=== PATIENT | male | born 1975 | race African-American/Black ===

== ENCOUNTER 2016-08-15 07:40 | Emergency (ER) | payer SELFPAY ==
[~2016-08-15] VITALS: Ht 170.2 cm; Wt 63.5 kg
[~2016-08-15 07:40] MED LIST: ALBU6.7H INH; PRED20 PO
[2016-08-15 07:41] VITALS: BP 136/85; PULSE 74; RESP 20; TEMP 98.1; O2SAT 100
[2016-08-15] MEDS ORDERED: IBUP800T23 PO (08:00)
[2016-08-15] MEDS ORDERED: BACT800T5 PO (08:00)
[2016-08-15] MEDS ORDERED: CEPH-460 PO (08:00)
[2016-08-15] MEDS ORDERED: LIDOCAINE 1%/EPINEPHrine 1:100,000 SOLN 20 ML VIAL INFIL ONE (08:00)
--- NOTE | 2016-08-15 08:01 | PD ---
HPI Chief Complaint: Lump, Cyst, Hernia Time Seen by Provider: 07:56 Travel History International Travel<30 days: No Contact w/Intl Traveler<30days: No Traveled to known affect area: No History of Present Illness HPI 40-year-old male presents to the emergency Department with complaint of an abscess to his left buttock times one week. Has history of abscesses. Reports subjective fever. Denies vomiting. Has not taken any medications or tried any treatments to alleviate his symptoms. Has no other medical complaints. No known allergies. No other modifying factors or associated signs and symptoms. PFSH Past Medical History Asthma: Yes Diminished Hearing: No Inguinal Hernia: Yes (LEFT SIDE 2000) Past Surgical History Abdominal Surgery: Yes (HERNIA REPAIR 2000) Social History Alcohol Use: Yes (SOCIAL) Tobacco Use: Yes (04/18 PPD) Substance Use: No Allergies-Medications (Allergen,Severity, Reaction): Coded Allergies: No Known Allergies (Verified , 08/15/16) Reported Meds & Prescriptions Reported Meds & Active Scripts Active Bactrim DS (Sulfamethoxazole-Trimethoprim) 800-160 Mg Tab 1 Tab PO BID 10 Days Keflex (Cephalexin) 500 Mg Cap 500 Mg PO Q6H 10 Days Ibuprofen 800 Mg Tab 800 Mg PO Q6HR PRN Reported Proventil Hfa 6.7 GM Inh (Albuterol Sulfate) 90 Mcg/Act Aer 1 Puff INH Q4H PRN Review of Systems Except as stated in HPI: all other systems reviewed are Neg Physical Exam Narrative GENERAL: Well-nourished, well-developed male patient, in no acute distress; afebrile, nontoxic-appearing SKIN: There is an indurated area to the left buttocks which measures about 2 cm in diameter. It is fluctuant but there is no pointing or drainage. There is a zone of inflammation around it but no lymphangitis. HEAD: Atraumatic. Normocephalic. EYES: Pupils equal and round. No scleral icterus. No injection or drainage. ENT: Mucosa pink and moist. Airway patent. NECK: Trachea midline. CARDIOVASCULAR: Regular rate. RESPIRATORY: No accessory muscle use. GASTROINTESTINAL: Flat. MUSCULOSKELETAL: No obvious deformities. No clubbing. No cyanosis. No edema. NEUROLOGICAL: Awake and alert. Oriented 3. No obvious cranial nerve deficits. Motor grossly within normal limits. Normal speech. PSYCHIATRIC: Appropriate mood and affect; insight and judgment normal. Data Data Last Documented VS Vital Signs Date Time Temp Pulse Resp B/P Pulse Ox O2 Delivery O2 Flow Rate FiO2 08/15/16 07:41 98.1 74 20 136/85 100 Room Air Orders Lidocai-Epi 1%-1:100,000 Inj (Xylocaine- (08/15/16 08:00) Wound Culture And Gram Stain (08/15/16 07:55) MDM Medical Decision Making Medical Screen Exam Complete: Yes Emergency Medical Condition: Yes Medical Record Reviewed: Yes Differential Diagnosis Abscess, folliculitis, cellulitis Narrative Course 40-year-old male with abscess to his left buttocks. See my procedure note for incision and drainage. Wound culture pending. Keflex, Bactrim, ibuprofen prescribed for home. Instructed patient to follow up with primary care provider or return to the emergency department in 48 hours for packing removal. Patient verbalizes understanding and agreement with treatment plan. Patient is medically cleared and stable for discharge. Discussed reasons to return to the emergency department. Instructed patient to follow up with primary care provider. Patient agrees with treatment plan. The patients vital signs are stable and the patient is stable for outpatient follow-up and treatment. Patient discharged home, stable and in no acute distress. Procedures Procedure Narrative INCISION AND DRAINAGE OF ABSCESS: The area was prepped and was sterilely draped. A subcutaneous wheal of 1 % Xylocaine with epinephrine with a total number 2 mL was used to anesthetize the area properly. A number 11 scalpel was used to make a 1-cm incision across the area of the abscess. The abscess was drained, complex loculations were broken down, and irrigated with normal saline. Cultures were obtained. Quarter inch iodoform packing was placed in the wound. Sterile dressing applied. Patient advised to have packing removed in two days. Diagnosis Primary Impression: Abscess of buttock, left Referrals: Primary Care Physician Patient Instructions: Abscess (ED), Abscess Follow-up (ED), Abscess Incision and Drainage (ED), General Instructions Departure Forms: Tests/Procedures, Work Release Enter return to work date: August 16, 2016 Additional Instructions: Complete full course of antibiotics Warm compresses to the affected area Keep area clean and dry Ibuprofen or Tylenol as directed and as needed for pain and inflammation Return to the emergency department or follow-up with primary care provider in 48 hours for packing removal and wound recheck Follow-up with primary care provider Return to emergency department immediately with worsening of symptoms Med/Other Pt SpecificInfo: Prescription(s) given Scripts Sulfamethoxazole-Trimethoprim (Bactrim DS)800-160 Mg Tab1 Tab PO BID 10 Days Ref 0 Prov:Cora Kenny 08/15/16 Cephalexin (Keflex)500 Mg [id number] Mg PO Q6H 10 Days Ref 0 Prov:Cora Kenny 08/15/16 Ibuprofen 800 Mg Qpx017 Mg PO Q6HR PRN (PAIN) #30 TAB Ref 0 Prov:Cora Kenny 08/15/16 Disposition: 01 DISCHARGE HOME Condition: Stable Cora Kenny August 15, 2016 08:01
[2016-08-15] MEDS ORDERED: ALBU6.7H INH (08:07)
== END 2016-08-15 08:48 | disposition home or self-care (01) ==
LOC: NEPK 07:40
DX: L02.31 Cutaneous abscess of buttock (principal); J45.909 Unspecified asthma, uncomplicated; F17.210 Nicotine dependence, cigarettes, uncomplicated; B95.62 Methicillin resistant Staphylococcus aureus infection as the cause of diseases classified elsewhere
CPT/HCPCS: 10061; 86403; 87070; 87186

== ENCOUNTER 2016-12-28 22:06 | Emergency (ER) | payer SELFPAY ==
[~2016-12-28] VITALS: Ht 170.2 cm; Wt 63.5 kg
[~2016-12-28 22:06] MED LIST changes: +BACT800T5 PO; +CEPH-460 PO; +IBUP800T23 PO; -PRED20 PO
[2016-12-28 22:08] VITALS: BP 142/95; PULSE 80; RESP 16; TEMP 98.7; O2SAT 94
[2016-12-28] MEDS ORDERED: BACT800T5 PO (23:56)
[2016-12-28] MEDS ORDERED: CEPH-460 PO (23:56)
[2016-12-28] MEDS ORDERED: DICL75TA PO (23:56)
[2016-12-29] MEDS ORDERED: ACETAMINOPHEN/HYDROcodone 325 MG/5 MG TAB PO ONE
[2016-12-29] MEDS ORDERED: SULFAMETHOXAZOLE-TRIMETHOPRIM DS 800-160 MG TAB PO ONE
[2016-12-29] MEDS ORDERED: CEPHALEXIN MONOHYDRATE 500 MG CAP PO ONE
--- NOTE | 2016-12-29 | PD ---
HPI Chief Complaint: Bite or Sting Time Seen by Provider: 23:56 Travel History International Travel<30 days: No Contact w/Intl Traveler<30days: No Traveled to known affect area: No History of Present Illness HPI 41-year-old black male presents with department with a infection to his back of his right thigh over last several days. It has become increasing painful swollen. He works as a senior category manager. Patient has had a history of skin infections in the past. He denies any fever or chills. No drainage. Some moderate. No alleviating factors. 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 SKIN: Patient has a 3 x 3 cm raised indurated abscess to the posterior right thigh. There is no fluctuance or pointing.. Warm and dry. HEAD: Atraumatic. Normocephalic. EYES: PERRL, EOMI, no discharge or injection. No scleral icterus. EARS: Clear NOSE: Nasal turbinates appear normal. THROAT: Mucosa pink and moist. Airway patent. NECK: Trachea midline. supple, moves head freely. LUNGS: Clear to auscultation. CV: Regular in rhythm. ABDOMEN: Soft nontender. EXT: No clubbing cyanosis or edema. Data Data Last Documented VS Vital Signs Date Time Temp Pulse Resp B/P (MAP) Pulse Ox O2 Delivery O2 Flow Rate FiO2 12/28/16 22:08 98.7 80 16 142/95 (111) 94 Room Air Orders Orders Sulfamet-Trimeth Ds 800-160 Mg (Bactrim (12/29/16 00:00) Cephalexin (Keflex) (12/29/16 00:00) Acetamin-Hydrocod 325-5 Mg ([place] 5-325 (12/29/16 00:00) MDM Medical Decision Making Medical Screen Exam Complete: Yes Emergency Medical Condition: Yes Medical Record Reviewed: Yes Differential Diagnosis MDM: High Differential diagnoses: Abscess, folliculitis, cellulitis, lymphangitis, abrasion, contact dermatitis Narrative Course An incision and drainage has been performed. Patient's given Keflex 500, Bactrim DS and Lortab 5 a grams by mouth. This is right thigh abscess Procedures Procedure Narrative I&D abscess: After the risks and benefits were discussed the following procedure was performed. The skin is prepped and draped in the usual sterile fashion using Betadine. The abscess is anesthetized with 1% lidocaine. After adequate anesthesia, an 11 blade scalpel is used to make a 1.5 centimeter central incision. Perulant material is expressed. Loculations are broken up using curved Donna forceps. The wound is cleansed deeply using dilute Betadine and peroxide on Q-tips. The wound is packed open using iodoform gauze. A clean dressing is applied. The patient tolerated the procedure well. There was no complications. Follow-up instructions were given to the patient. Diagnosis Primary Impression: Abscess of right thigh Patient Instructions: Narcotic given in the ED, General Instructions Additional Instructions: Rest. Elevation. keep clean and dry. remove the packing in two days. Daily wound care with soap, water and Neosporin. Keflex, Septra DS, and diclofenac. Follow-up with a primary care doctor in one week. Return to the ER for any problems. Med/Other Pt SpecificInfo: Prescription(s) given, Wound Care Scripts Diclofenac Sodium DR (Diclofenac Sodium DR) 75 Mg Tabdr 75 MG PO BID, #20 TAB 0 Refills Prov: Shamika Salazar DO 12/28/16 Cephalexin (Keflex) 500 Mg Cap 500 MG PO Q6H for Infection for 10 Days, CAP 0 Refills Prov: SalazarShamika DO 12/28/16 Sulfamethoxazole-Trimethoprim (Bactrim DS) 800-160 Mg Tab 1 TAB PO BID for Infection for 10 Days, TAB 0 Refills Prov: SalazarShamika DO 12/28/16 Disposition: 01 DISCHARGE HOME Condition: Stable Ulises Burch Dec 29, 2016 00:00
== END 2016-12-29 00:33 | disposition home or self-care (01) ==
LOC: NETRI 22:06 → EDTENT 12-29 00:33
DX: L02.415 Cutaneous abscess of right lower limb (principal)
CPT/HCPCS: 10061

== ENCOUNTER 2017-04-19 02:29 | Inpatient (IN) | payer SELFPAY ==
[2017-04-19] VITALS (12 sets, daily range): BP systolic 101–146; BP diastolic 63–94; PULSE 54–72; RESP 14–22; TEMP 96.2–98.4; O2SAT 95–100
[~2017-04-19] VITALS: Ht 170.2 cm; Wt 71.5 kg
[~2017-04-19 02:29] MED LIST changes: -ALBU6.7H INH; +DICL75TA PO; -IBUP800T23 PO
[2017-04-19] MEDS ORDERED: IOHEXOL 350 MG/ML 10 ML VIAL (for RAD DIAG) IVCONTRAST ONE (02:30)
[2017-04-19] MEDS ORDERED: ceFAZolin 2 GM PREMIX 50 ML ONE (02:33)
[2017-04-19] MEDS ORDERED: DIPHTH/TETANUS/ACEL PERTUSSIS (BOOSTER) 0.5 ML VIAL/PFS IM ONE (02:33)
[2017-04-19] MEDS ORDERED: ONDANSETRON HCL 4 MG/2 ML VIAL ONE (02:38)
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
[2017-04-19 03:03] LABS: AUTOMATED NEUTROPHIL # 3.6 TH/MM3 (1.8-7.7); BASOPHIL # 0.1 TH/MM3 (0-0.2); BASOPHIL % 1.6 % (0.0-2.0); EOSINOPHIL # 0.2 TH/MM3 (0-0.4); EOSINOPHIL % 2.6 % (0.0-4.0); HEMOGLOBIN 14.3 GM/DL (13.0-17.0); LYMPH % 27.2 % (9.0-44.0); LYMPHOCYTE # 1.6 TH/MM3 (1.0-4.8); MEAN CELL VOLUME 86.3 FL (80.0-100.0); MEAN CORPUSCULAR HEMOGLOBIN 28.6 PG (27.0-34.0); MEAN CORPUSCULAR HGB CONC 33.1 % (32.0-36.0); MONO % 7.5 % (0.0-8.0); MONOCYTE # 0.4 TH/MM3 (0-0.9); NEUT % 61.1 % (16.0-70.0); PLATELET COUNT 444 TH/MM3 (150-450); RED BLOOD COUNT 4.99 MIL/MM3 (4.50-5.90); RED CELL DISTRIBUTION WIDTH 14.7 % (11.6-17.2)
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
[2017-04-19] MEDS ORDERED: MISCELLANEOUS NURSING INFORMATION XX SCH (03:15)
[2017-04-19] MEDS ORDERED: SODIUM CHLORIDE 0.9% FLUSH 10 ML FLUSH IV FLUSH PRN (03:15)
[2017-04-19] MEDS ORDERED: CHLORHEXIDINE GLUCONATE 2 % 1 PACK (2 CLOTHS) TOP PRN (03:15)
[2017-04-19] MEDS ORDERED: ONDANSETRON HCL 4 MG/2 ML VIAL IV PUSH PRN (03:15)
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
[2017-04-19 03:39] LABS: PROTHROMBIN TIME - PATIENT 10.2 SEC (9.8-11.6)
[2017-04-19] MEDS: VANCOMYCIN INJ 1,000 MG in SODIUM CHLOR 0.9% 250 ML INJ 250 ML IV SCH ×3 (03:52→21:19)
[2017-04-19] MEDS: MORPHINE SULFATE 2 MG/ML INJ IV PUSH PRN ×2 (03:53→09:03)
[2017-04-19] MEDS ORDERED: CHLORHEXIDINE GLUCONATE 2 % 1 PACK (2 CLOTHS) TOP SCH (04:00)
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
[2017-04-19] MEDS: LACTATED RINGER'S 1000 ML INJ 1,000 ML IV SCH ×4 (04:55→21:18)
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
[2017-04-19] MEDS ORDERED: RESP: ALBUTEROL 2.5 MG/3 ML NEB (PRN) NEB (05:45)
[2017-04-19] MEDS: PIPERACIL-TAZO 4.5 GM PREMIX 100 ML IV SCH ×4 (06:06→23:20)
[2017-04-19] MEDS ORDERED: BACITRACIN TOP OINT 15 GM TUBE TOP SCH (09:00)
[2017-04-19 17:15] LABS: HEMATOCRIT 39.7 % (39.0-51.0); HEMOGLOBIN 13.3 GM/DL (13.0-17.0); MEAN CELL VOLUME 86.3 FL (80.0-100.0); MEAN CORPUSCULAR HGB CONC 33.6 % (32.0-36.0); MEAN PLATELET VOLUME 7.9 FL (7.0-11.0); PLATELET COUNT 411 TH/MM3 (150-450); RED CELL DISTRIBUTION WIDTH 14.6 % (11.6-17.2); WHITE BLOOD COUNT 5.6 TH/MM3 (4.0-11.0)
[2017-04-19] MEDS ORDERED: ACETAMINOPHEN/HYDROcodone 325 MG/5 MG TAB PO PRN ×2 (18:15→20:00)
[2017-04-19] MEDS ORDERED: ACETAMINOPHEN/HYDROcodone 325 MG/10 MG TAB PO PRN (18:15)
[2017-04-19] MEDS ORDERED: LACTULOSE SYRUP 20 GM/30 ML CUP PO PRN (18:30)
[2017-04-19] MEDS ORDERED: MORPHINE SULFATE 2 MG/ML INJ IV PUSH PRN (18:30)
[2017-04-19] MEDS ORDERED: NICOTINE 21 MG/24 HR PATCH T-DERMAL ONE (19:00)
[2017-04-19] MEDS ORDERED: REMOVE OLD NICODERM (NICOTINE) PATCH T-DERMAL SCH (21:00)
[2017-04-19] MEDS: DOCUSATE SODIUM 50 MG/SENNA 8.6 MG TAB PO SCH (21:00)
[2017-04-19] MEDS: ACETAMINOPHEN/HYDROcodone 325 MG/10 MG TAB PO PRN (21:05)
[2017-04-20] VITALS: BP 155/83; PULSE 69; RESP 22; TEMP 96.8; O2SAT 98
[2017-04-20 04:00] VITALS: BP 111/77; PULSE 65; RESP 22; TEMP 96; O2SAT 97
[2017-04-20] MEDS: VANCOMYCIN INJ 1,000 MG in SODIUM CHLOR 0.9% 250 ML INJ 250 ML IV SCH (04:07)
[2017-04-20] MEDS: PIPERACIL-TAZO 4.5 GM PREMIX 100 ML IV SCH ×2 (05:37→10:58)
[2017-04-20] MEDS: ACETAMINOPHEN/HYDROcodone 325 MG/10 MG TAB PO PRN ×2 (05:40→10:57)
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
[2017-04-20 08:00] VITALS: BP 127/70; PULSE 78; RESP 19; TEMP 97.3; O2SAT 99
[2017-04-20 08:13] LABS: BASOPHIL % 0.7 % (0.0-2.0); EOSINOPHIL # 0.2 TH/MM3 (0-0.4); EOSINOPHIL % 5.3 % (0.0-4.0); HEMOGLOBIN 12.9 GM/DL (13.0-17.0); LYMPH % 31.5 % (9.0-44.0); LYMPHOCYTE # 1.3 TH/MM3 (1.0-4.8); MEAN CELL VOLUME 86.8 FL (80.0-100.0); MEAN CORPUSCULAR HEMOGLOBIN 28.8 PG (27.0-34.0); MEAN CORPUSCULAR HGB CONC 33.1 % (32.0-36.0); MEAN PLATELET VOLUME 7.8 FL (7.0-11.0); MONO % 13.2 % (0.0-8.0); MONOCYTE # 0.5 TH/MM3 (0-0.9); NEUT % 49.3 % (16.0-70.0); PLATELET COUNT 358 TH/MM3 (150-450); RED CELL DISTRIBUTION WIDTH 14.7 % (11.6-17.2); WHITE BLOOD COUNT 4.1 TH/MM3 (4.0-11.0)
[2017-04-20 08:38] LABS: BICARBONATE 24.7 MEQ/L (21.0-32.0); CALCIUM 9.1 MG/DL (8.5-10.1); CREATININE 1.25 MG/DL (0.60-1.30)
[2017-04-20] MEDS: DOCUSATE SODIUM 50 MG/SENNA 8.6 MG TAB PO SCH (08:55)
[2017-04-20] MEDS ORDERED: NICOTINE 21 MG/24 HR PATCH T-DERMAL SCH (09:00)
[2017-04-20 11:33] VITALS: BP 118/64; PULSE 102; RESP 20; TEMP 96.9; O2SAT 99
[2017-04-20] MEDS ORDERED: Vancomycin Consult Pharmacy 1 EA OTHER SCH (12:00)
[2017-04-20] MEDS ORDERED: HYDR-3516 PO (12:25)
[2017-04-20] MEDS ORDERED: AUGM500T7 PO (12:25)
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
[2017-04-20] MEDS ORDERED: VANCOMYCIN INJ 1,250 MG in SODIUM CHLOR 0.9% 250 ML INJ 250 ML IV SCH (16:00)
[2017-04-22] MEDS ORDERED: PHARMACY ORDERED LAB ONE (03:45)
== END 2017-04-20 15:30 | disposition home or self-care (01) | DRG 605 ==
LOC: NEPI 02:29 → NEDA 03:20 → N03B 05:54 → N07B 17:55
PROVIDERS: ADMIT Surgery; ATTEND Surgery
PROC: 0HQ4XZZ Repair Neck Skin, External Approach (ICD-10-PCS; principal; 2017-04-19)
PROC: 0HQGXZZ Repair Left Hand Skin, External Approach (ICD-10-PCS; 2017-04-19)
PROC: 0HQFXZZ Repair Right Hand Skin, External Approach (ICD-10-PCS; 2017-04-19)
DX: S11.81XA Laceration without foreign body of other specified part of neck, initial encounter (principal); R04.2 Hemoptysis; F17.210 Nicotine dependence, cigarettes, uncomplicated; S51.811A Laceration without foreign body of right forearm, initial encounter; S61.212A Laceration without foreign body of right middle finger without damage to nail, initial encounter; X99.1XXA Assault by knife, initial encounter; S61.214A Laceration without foreign body of right ring finger without damage to nail, initial encounter; S61.217A Laceration without foreign body of left little finger without damage to nail, initial encounter; F19.10 Other psychoactive substance abuse, uncomplicated; R49.0 Dysphonia
CPT/HCPCS: 12005; 70491; 71045; 73120; 80048; 80202; 82435; 82565; 82947; 84132; 84295; 84520; 85025; 85027; 85610; 85730; 86850; 86900; 86901; 87641; 90471; 90715; 94150; 96374; 96375; J0690; J2270; J2405; J2543; J3370; J7050; J7120; Q9967

== ENCOUNTER 2017-05-09 20:09 | Emergency (ER) | payer SELFPAY ==
[~2017-05-09] VITALS: Ht 170.2 cm; Wt 65.9 kg
[~2017-05-09 20:09] MED LIST changes: +AUGM500T7 PO; -BACT800T5 PO; -CEPH-460 PO; -DICL75TA PO; +HYDR-3516 PO
[2017-05-09 20:10] VITALS: BP 149/103; PULSE 78; RESP 16; TEMP 98.9; O2SAT 100
[2017-05-09 22:55] VITALS: BP 161/94; PULSE 62; RESP 16; O2SAT 99
[2017-05-09 23:03] LABS: AUTOMATED NEUTROPHIL # 3.5 TH/MM3 (1.8-7.7); BASOPHIL # 0.1 TH/MM3 (0-0.2); BASOPHIL % 1.3 % (0.0-2.0); EOSINOPHIL # 0.3 TH/MM3 (0-0.4); EOSINOPHIL % 4.2 % (0.0-4.0); HEMATOCRIT 40.6 % (39.0-51.0); HEMOGLOBIN 13.3 GM/DL (13.0-17.0); LYMPH % 31.8 % (9.0-44.0); MEAN CELL VOLUME 86.5 FL (80.0-100.0); MEAN CORPUSCULAR HEMOGLOBIN 28.3 PG (27.0-34.0); MEAN CORPUSCULAR HGB CONC 32.7 % (32.0-36.0); MEAN PLATELET VOLUME 7.7 FL (7.0-11.0); MONO % 7.2 % (0.0-8.0); MONOCYTE # 0.5 TH/MM3 (0-0.9); NEUT % 55.5 % (16.0-70.0); PLATELET COUNT 433 TH/MM3 (150-450); RED CELL DISTRIBUTION WIDTH 13.9 % (11.6-17.2); WHITE BLOOD COUNT 6.4 TH/MM3 (4.0-11.0)
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
[2017-05-09 23:15] LABS: PROTHROMBIN TIME - PATIENT 10.1 SEC (9.8-11.6)
[2017-05-09 23:38] LABS: ALBUMIN 3.7 GM/DL (3.4-5.0); ALT (GPT) 22 U/L (12-78); AST (GOT) 18 U/L (15-37); BICARBONATE 30.2 MEQ/L (21.0-32.0); BLOOD UREA NITROGEN 19 MG/DL (7-18); CALCIUM 8.8 MG/DL (8.5-10.1); CHLORIDE 106 MEQ/L (98-107); CREATININE 1.44 MG/DL (0.60-1.30); GLOMERULAR FILTRATION RATE 66 ML/MIN (>89); GLUCOSE,RANDOM 112 MG/DL (74-106); SODIUM (NA) 140 MEQ/L (136-145)
[2017-05-09 23:40] LABS: ALKALINE PHOSPHATASE 102 U/L (45-117); TOTAL BILIRUBIN ADULT 0.2 MG/DL (0.2-1.0); TOTAL PROTEIN 7.2 GM/DL (6.4-8.2)
[2017-05-10] VITALS: BP 157/92; PULSE 86; RESP 16; O2SAT 99
[2017-05-10] MEDS ORDERED: IOHEXOL 350 MG/ML 10 ML VIAL (for RAD DIAG) IVCONTRAST ONE (00:20)
[2017-05-10 00:46] LABS: C-REACTIVE PROTEIN LESS THAN 0.29 MG/DL (0.00-0.30); MAGNESIUM 2.3 MG/DL (1.5-2.5)
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
[2017-05-10 01:33] LABS: BILIRUBIN, URINE NEG (NEG); BLOOD, URINE NEG (NEG); GLUCOSE,URINE NEG (NEG); KETONE, URINE NEG (NEG); NITRITE,URINE NEG (NEG); PH, URINE 6.5 (5.0-8.5); URINE COLOR YELLOW (YELLW/STRAW); URINE LEUKOCYTE ESTERASE NEG (NEG)
[2017-05-10] MEDS ORDERED: NAPR-810 PO (01:48)
[2017-05-10] MEDS ORDERED: CEPH-460 PO (01:57)
[2017-05-10] MEDS ORDERED: KETOROLAC TROMETHAMINE 30 MG/ML (IVP) VIAL IV PUSH ONE (02:00)
[2017-05-10 02:05] VITALS: BP 140/94
--- NOTE | 2017-05-10 12:08 | EKG ---
Date Performed: 05/09/2017 Time Performed: 23:52:33 PTAGE: 41 years EKG: Sinus rhythm NONSPECIFIC T-WAVE ABNORMALITY BORDERLINE ECG NO PREVIOUS TRACING DOCTOR: iV Murcia Interpretating Date/Time 05/10/2017 12:08:09
== END 2017-05-10 02:10 | disposition home or self-care (01) ==
LOC: NEPE 20:09
DX: M54.2 Cervicalgia (principal); R22.1 Localized swelling, mass and lump, neck; R13.10 Dysphagia, unspecified; S11.93XD Puncture wound without foreign body of unspecified part of neck, subsequent encounter; X99.9XXD Assault by unspecified sharp object, subsequent encounter; R94.31 Abnormal electrocardiogram [ECG] [EKG]; F17.200 Nicotine dependence, unspecified, uncomplicated; F14.90 Cocaine use, unspecified, uncomplicated; F12.90 Cannabis use, unspecified, uncomplicated
CPT/HCPCS: 70491; 80053; 81001; 83735; 85025; 85610; 85730; 86140; 93005; 96374; 99285; J1885; Q9967

== ENCOUNTER 2017-12-19 08:10 | Observation (INO) ==
[2017-12-19 10:36] LABS: Baso # (Auto) 0.1 th/mm3 (0.0-0.2); Baso % (Auto) 0.9 % (0.0-2.0); Eos # (Auto) 0.2 th/mm3 (0.0-0.4); Hemoglobin 14.3 gm/dL (13.0-17.0); Lymph % (Auto) 17.8 % (9.0-44.0); Mean Corpuscular HGB Conc 33.4 % (32.0-36.0); Mean Corpuscular Hemoglobin 28.4 pg (27.0-34.0); Mean Corpuscular Volume 85.3 fL (80.0-100.0); Mean Platelet Volume 7.6 fL (7.0-11.0); Mono # (Auto) 0.5 th/mm3 (0.0-0.9); Neut # (Auto) 3.9 th/mm3 (1.8-7.7); Neut % (Auto) 69.3 % (16.0-70.0); Platelet Count 355 th/mm3 (150-450); Red Blood Count 5.04 mil/mm3 (4.50-5.90); Red Cell Distribution Width 14.2 % (11.6-17.2); White Blood Count 5.7 th/mm3 (4.0-11.0)
[2017-12-19 10:51] LABS: Activated Partial Thrombo Time 19.1 sec (24.3-30.1)
--- NOTE | 2017-12-19 10:51 | CT ---
EXAM DATE: 12/19/2017 10:40 AM EDT AGE/SEX: 42 years / Male INDICATIONS: Syncopal episode. Cephalgia. CLINICAL DATA: This is the patient's initial encounter. Patient reports that signs and symptoms have been present for 1 day and indicates a pain score of 7/10. MEDICAL/SURGICAL HISTORY: Asthma. None. RADIATION DOSE: 38.67 CTDI (mGy) COMPARISON: No prior exams available for comparison. TECHNIQUE: CT of the head without contrast. Using automated exposure control and adjustment of the mA and/or kV according to patient size, radiation dose was kept as low as reasonably achievable to ob tain optimal diagnostic quality images. DICOM format image data is available electronically for revi ew and comparison. FINDINGS: Cerebrum: The ventricles are normal for age. No evidence of midline shift, mass lesion, hemorrhage or acute infarction. No extraaxial fluid collections are seen. Posterior Fossa: The cerebellum and brainstem are intact. The 4th ventricle is midline. The cerebe llopontine angle is unremarkable. Extracranial: The visualized portion of the orbits is intact. Skull: The calvaria is intact. No evidence of skull fracture. CONCLUSION: 1. No acute intracranial abnormality . Electronically signed by: Mauricio Eid MD 12/19/2017 10:50 AM EDT
[2017-12-19 10:55] LABS: Alanine Aminotransferase 34 U/L (12-78); Albumin 3.6 g/dL (3.4-5.0); Anion Gap 10 meq/L (5-15); Aspartate Aminotransferase 25 U/L (15-37); Blood Urea Nitrogen 15 mg/dL (7-18); Calcium 8.6 mg/dL (8.5-10.1); Carbon Dioxide 25.9 meq/L (21.0-32.0); Chloride 106 meq/L (98-107); Glomerular Filtration Rate Greater Than 89 mL/min (>89); Glucose,Random 85 mg/dL (74-106); Magnesium 2.3 mg/dL (1.5-2.5); Potassium 4.3 meq/L (3.5-5.1); Sodium 142 meq/L (136-145)
[2017-12-19 10:59] LABS: Alkaline Phosphatase 70 U/L (45-117); Total Protein 7.3 g/dL (6.4-8.2)
[2017-12-19 11:53] LABS: Bilirubin,Urine Negative (Negative); Clarity,Urine Clear (Clear); Color,Urine Yellow (Yellw/Straw); Glucose,Urine (UA) Negative (Negative); Leukocyte Esterase,Urine Trace (Negative); Mucus,Urine Few /lpf (Occasional); Nitrite,Urine Negative (Negative); Specific Gravity,Urine 1.017 (1.002-1.035); Squamous Epithelial Cell,Urine <1 /hpf (0-5)
[2017-12-19 12:00] LABS: Amphetamine Screen,Urine Neg (Neg); Barbiturate Screen,Urine Neg (Neg); Cannabinoid Screen,Urine Neg (Neg); Cocaine Screen,Urine Pos (Neg)
[2017-12-19 12:09] LABS: Opiate Screen,Urine Neg (Neg)
[2017-12-19] MEDS ORDERED: Aspirin 325 MG Tablet PO ONE (13:18)
--- NOTE | 2017-12-19 13:55 | ED ---
HPI General Chief complaint: Fall Stated complaint: syncope Time Seen by Provider: 12/19/17 10:06 Source: patient Mode of arrival: ambulatory Limitations: no limitations History of Present Illness HPI narrative: Patient is a 42-year-old male with only history of asthma, who presents the emergency room after he had a syncopal episode while at work today. Patient reports that he was walking to work and he passed out while walking to the [employer] [place]. Patient has abrasions to his face, patient does not remember what happened. Patient reports that he woke up to his coworker standing around him. Prior to this, patient denies any chest pain or shortness of breath, denies any dizziness. Reports that he has been having left-sided headache behind his left eye is for the past few days. This was not a severe headache. Denies any history of seizures, reports that after he fell, he did not suffer any urinary incontinence. Patient reports that something similar happened 10 years ago, he was not seen by a physician for this. Reports that he felt better and went back to work. Patient does use drugs - last used cocaine and marijuana yesterday. Related Data Home Medications Medication Instructions Recorded Confirmed No Known Home Medications 12/19/17 12/19/17 Allergies Allergy/AdvReac Type Severity Reaction Status Date / Time No Known Drug Allergies Allergy Unknown Verified 04/19/17 02:56 Review of Systems ROS: all other systems reviewed are negative [facility] Medical History Medical History Left groin hernia (Acute) Asthma (Acute) Social History Social History Substance History: Active Abuse Smoking Status: Current every day smoker Tobacco Type: Cigarettes How Often Do You Have a Drink Containing Alcohol: Monthly or less Recent Travel in [facility] within the Last 8 Weeks: No Substance Abuse Detail Marijuana: Substance Use Status: Active Route Used Substance Abuse: Inhalation Substance Abuse Comment: used yesterday Crack/Cocaine: Substance Use Status: Active Substance Abuse Comment: used yesterday Immunization History Tetanus Immunization: <5 Years Hx Influenza Vaccine This Season: No Exam Narrative Exam Narrative: GENERAL: Mild distress SKIN: Focused skin assessment warm/dry. HEAD: abrasions to the left side of his face. Normocephalic. EYES: Pupils equal and round. No scleral icterus. No injection or drainage. ENT: No nasal bleeding or discharge. Mucous membranes pink and moist. NECK: Trachea midline. No JVD. CARDIOVASCULAR: Regular rate and rhythm. No murmur appreciated. RESPIRATORY: No accessory muscle use. Clear to auscultation. Breath sounds equal bilaterally. GASTROINTESTINAL: Abdomen soft, non-tender, nondistended. Hepatic and splenic margins not palpable. MUSCULOSKELETAL: No obvious deformities. No clubbing. No cyanosis. No edema. NEUROLOGICAL: Awake and alert. No obvious cranial nerve deficits. Motor grossly within normal limits. Normal speech. CN 2-12 grossly intact with no neurological deficits PSYCHIATRIC: Appropriate mood and affect; insight and judgment normal. Course Initial Documented Vital Signs Temperature 97.9 F 12/19/17 08:21 Pulse Rate 64 12/19/17 08:21 Respiratory Rate 16 12/19/17 08:21 Blood Pressure 126/91 H 12/19/17 08:21 Pulse Oximetry 98 12/19/17 08:21 Last Documented Vital Signs Temperature 97.9 F 12/19/17 08:21 Pulse Rate 88 12/19/17 12:27 Respiratory Rate 16 12/19/17 12:27 Blood Pressure 142/86 H 12/19/17 12:27 Pulse Oximetry 97 12/19/17 14:31 Medical Decision Making MDM Narrative Medical decision making narrative: During the course of the patients emergency department visit, the patients history, examination, and differential diagnosis were reviewed with the patient. The patient was placed on a nurse monitoring with oximetry and frequent blood pressure monitoring. The patient had an IV access obtained and blood work sent for analysis. The patient was initially provided asa 325mg after ct of head neg for ICH. The patients laboratory studies Patient will be obs for syncope case reviewed with FP service who accepts pt under observation to Dr. Majano Medical Screen Exam Complete: Yes Emergency Medical Condition: Yes Differential Diagnosis Differential Diagnosis: Intracranial hemorrhage, SAH, ACS, arrhythmia, electrolyte abnormality, vasovagal syncope Medical Records Medical records reviewed: Yes I reviewed the patient's medical records. Lab Data Lab results reviewed: Yes I reviewed the patient's lab results. Result diagrams: 12/19/17 10:15 12/19/17 10:15 Lab Results 12/19/17 12/19/17 12/19/17 Range/Units 10:15 10:15 10:15 WBC 5.7 (4.0-11.0) th/mm3 RBC 5.04 (4.50-5.90) mil/mm3 Hgb 14.3 (13.0-17.0) gm/dL Hct 43.0 (39.0-51.0) % MCV 85.3 (80.0-100.0) fL MCH 28.4 (27.0-34.0) pg MCHC 33.4 (32.0-36.0) % RDW 14.2 (11.6-17.2) % Plt Count 355 (150-450) th/mm3 MPV 7.6 (7.0-11.0) fL Neut % (Auto) 69.3 (16.0-70.0) % Lymph % (Auto) 17.8 (9.0-44.0) % [place] % (Auto) 9.0 H (0.0-8.0) % Eos % (Auto) 3.0 (0.0-4.0) % Baso % (Auto) 0.9 (0.0-2.0) % Neut # (Auto) 3.9 (1.8-7.7) th/mm3 Lymph # (Auto) 1.0 (1.0-4.8) th/mm3 [place] # (Auto) 0.5 (0.0-0.9) th/mm3 Eos # (Auto) 0.2 (0.0-0.4) th/mm3 Baso # (Auto) 0.1 (0.0-0.2) th/mm3 WBC Differential . Differential Comment Auto diff final PT 10.0 (9.8-11.6) sec INR 1.0 Ratio APTT 19.1 L (24.3-30.1) sec Sodium 142 (136-145) meq/L Potassium 4.3 (3.5-5.1) meq/L Chloride 106 (98-107) meq/L Carbon Dioxide 25.9 (21.0-32.0) meq/L Anion Gap 10 (5-15) meq/L BUN 15 (7-18) mg/dL Creatinine 1.07 (0.60-1.30) mg/dL Estimated GFR Greater than 89 (>89) mL/min Random Glucose 85 (74-106) mg/dL Calcium 8.6 (8.5-10.1) mg/dL Magnesium 2.3 (1.5-2.5) mg/dL Total Bilirubin 0.2 (0.2-1.0) mg/dL AST 25 (15-37) U/L ALT 34 (12-78) U/L Alkaline Phosphatase 70 (45-117) U/L Troponin I Less than 0.02 L (0.02-0.05) ng/mL B-Natriuretic Peptide (0-100) pg/mL Total Protein 7.3 (6.4-8.2) g/dL Albumin 3.6 (3.4-5.0) g/dL Urine Color (Yellw/Straw) Urine Clarity (Clear) Urine pH (5.0-8.5) Ur Specific [place] (1.002-1.035) Urine Protein (Neg-Trace) mg/dL Urine Glucose (UA) (Negative) mg/dL Urine Ketones (Negative) mg/dL Urine Occult Blood (Negative) Urine Nitrate (Negative) Urine Bilirubin (Negative) Urine Urobilinogen (Less than 2) mg/dL Ur Leukocyte Esterase (Negative) Urine RBC (0-3) /hpf Urine WBC (0-5) /hpf Ur Squamous Epith Cells (0-5) /hpf Urine Mucus (Occasional) /lpf Micro UA Comment Ur Microscopic Review Urine Culture Comments Urine Opiates Screen (Neg) Ur Barbiturates Screen (Neg) Ur Amphetamines Screen (Neg) U Benzodiazepines Scrn (Neg) Urine Cocaine Screen (Neg) U Cannabinoids Screen (Neg) 12/19/17 12/19/17 12/19/17 Range/Units 10:15 11:26 11:26 WBC (4.0-11.0) th/mm3 RBC (4.50-5.90) mil/mm3 Hgb (13.0-17.0) gm/dL Hct (39.0-51.0) % MCV (80.0-100.0) fL MCH (27.0-34.0) pg MCHC (32.0-36.0) % RDW (11.6-17.2) % Plt Count (150-450) th/mm3 MPV (7.0-11.0) fL Neut % (Auto) (16.0-70.0) % Lymph % (Auto) (9.0-44.0) % [place] % (Auto) (0.0-8.0) % Eos % (Auto) (0.0-4.0) % Baso % (Auto) (0.0-2.0) % Neut # (Auto) (1.8-7.7) th/mm3 Lymph # (Auto) (1.0-4.8) th/mm3 [place] # (Auto) (0.0-0.9) th/mm3 Eos # (Auto) (0.0-0.4) th/mm3 Baso # (Auto) (0.0-0.2) th/mm3 WBC Differential Differential Comment PT (9.8-11.6) sec INR Ratio APTT (24.3-30.1) sec Sodium (136-145) meq/L Potassium (3.5-5.1) meq/L Chloride (98-107) meq/L Carbon Dioxide (21.0-32.0) meq/L Anion Gap (5-15) meq/L BUN (7-18) mg/dL Creatinine (0.60-1.30) mg/dL Estimated GFR (>89) mL/min Random Glucose (74-106) mg/dL Calcium (8.5-10.1) mg/dL Magnesium (1.5-2.5) mg/dL Total Bilirubin (0.2-1.0) mg/dL AST (15-37) U/L ALT (12-78) U/L Alkaline Phosphatase (45-117) U/L Troponin I (0.02-0.05) ng/mL B-Natriuretic Peptide 5 (0-100) pg/mL Total Protein (6.4-8.2) g/dL Albumin (3.4-5.0) g/dL Urine Color Yellow (Yellw/Straw) Urine Clarity Clear (Clear) Urine pH 5.0 (5.0-8.5) Ur Specific [place] 1.017 (1.002-1.035) Urine Protein Negative (Neg-Trace) mg/dL Urine Glucose (UA) Negative (Negative) mg/dL Urine Ketones Negative (Negative) mg/dL Urine Occult Blood Negative (Negative) Urine Nitrate Negative (Negative) Urine Bilirubin Negative (Negative) Urine Urobilinogen Less than 2 (Less than 2) mg/dL Ur Leukocyte Esterase Trace H (Negative) Urine RBC 1 (0-3) /hpf Urine WBC 10 H (0-5) /hpf Ur Squamous Epith Cells <1 (0-5) /hpf Urine Mucus Few H (Occasional) /lpf Micro UA Comment Culture indicated Ur Microscopic Review Not Reportable Urine Culture Comments Culture indicated Urine Opiates Screen Neg (Neg) Ur Barbiturates Screen Neg (Neg) Ur Amphetamines Screen Neg (Neg) U Benzodiazepines Scrn Neg (Neg) Urine Cocaine Screen Pos H (Neg) U Cannabinoids Screen Neg (Neg) Imaging Data Attestation: I personally reviewed and interpreted this imaging study as follows : Radiologist's impression: Head CT 12/19/17 09:03 CONCLUSION: 1. No acute intracranial abnormality . ECG Data EKG Prior to Arrival: No Attestation: I personally reviewed and interpreted this ECG as follows: Interpretation: EKG at 0825: sinus ricki at 49bpm, qt/qtc: 455/425, nonspecific t wave changes Discharge Plan Discharge Disposition Patient Disposition: 30 Still Patient Discharge Condition Condition: Stable Discharge Details Diagnosis: Syncope Physicians Team ED Provider: Donna Rosas Primary Care Provider: Primary Care Maria G David Attending Provider: Dominic Brown Status ED Status: Admitted Observation Patient
--- NOTE | 2017-12-19 14:33 | P.HPFP ---
History of Present Illness Primary Care Physician: No Primary Care Physician History of Present Illness: This is a 42 y/o male who presented to the ED today following a syncopal episode this morning. His labwork and CT head came back negative. His EKG revealed sinus bradycardia with rate of 49. Upon exam, patient reports that he was sitting outside of workplace, sweating, and stood up to go inside. After 4 steps, when reaching for door, patient reports "passing out". The next thing he recalls is coming to on the ground with coworkers standing around him. He denies preceding chest pain, palpitations, SOB, dizziness, weakness or aura preceding the episode. He denies urinary incontinence, tongue biting, or residual symptoms following the episode. He reports a similar episode to this 10 years ago, but states that it was different because he had been walking for minutes after standing up before passing out. He denies significant past medical history other than asthma, which he has had since a child and does not see a doctor for. He does not have PCP or any active medical problems for which he takes medication. He was not evaluated for this previous episode. He reports adequate food intake but possible poor fluid intake. On ROS, he does report mild, L-sided ADAME in region behind eye for past few day that he has been managing with acetaminophen. He also endorsed chest pain that occurred last that he described as light pressure-like sensation in his epigastric region without radiation and not associated with diaphoresis, palpitations, n/v, or jaw/arm heaviness. He reports chronic lower back pain. He reports "OK" sleep, stating he got 3-4 hours in previous nights and is currently living on his mother's floor until he finds a house. Social: He reports 1PPD cigarette use, as well as recreational marijuana and cocaine use--both last used 36-48hrs ago. Social EtOH use of 1-2 beers. Surgical History: L-sided hernia repair. Family History: denies. - Diagnosis (1) Syncope Review of Systems Constitutional: Denies chills, Denies fever(s), Denies lack of energy, Denies weakness Eyes: Denies blurry vision, Denies change in vision, Denies floaters Ears, Nose, Mouth, and Throat: Reports headache(s), Denies poor balance Comments: Intermittent. L-sided, behind eye. Does not awake him from sleep. Cardiovascular: Reports chest pain, Reports chest pain with activity, Denies fast heart rate Comments: In region of epigastrium. Respiratory: Denies chest congestion, Denies cough, Denies coughing up blood Gastrointestinal: Denies abdominal pain, Denies black, tarry stools, Denies change in bowel habits, Denies change in stools Genitourinary: Denies blood in urine Musculoskeletal: Reports back pain Neurologic: Denies abnormal movements, Denies dizziness, Denies frequent falls, Denies loss of vision, Denies numbness, Denies unsteadiness, Denies weakness Psychiatric: Denies abnormal sleep pattern, Denies anxiety, Denies confusion Endocrine: Denies cold intolerance Hematologic/Lymphatic: Denies easy bleeding PMFSH - History History Provided By: Patient - Medical History Medical History: Medical History (Last Reviewed 12/19/17 @ 14:47 by Wing Carcamo) Left groin hernia (Acute) Asthma - Tobacco History Tobacco Use In Past 30 Days: Yes Smoking Status: Current every day smoker Tobacco Type: Cigarettes Packs Per Day: 1 - Alcohol History How Often Do You Have a Drink Containing Alcohol: Monthly or less - Substance Use History Substance History: Active Abuse (marijuana and cocaine, last used Monday morning ) - Substance Use Type Marijuana Status: Active Route Used: Inhalation Comment: used yesterday Crack/Cocaine Status: Active Comment: used yesterday - Travel History Recent Travel in the [facility] Within the Last 8 Weeks: No - Immunization History Tetanus Immunization: <5 Years Hx Influenza Vaccine This Season: No Medications and Allergies Active Medications: Active Medications Sodium Chloride (Ns Inj) 1,000 mls @ 100 mls/hr IV.CONT .Q10H JOSE G Allergies Allergy/AdvReac Type Severity Reaction Status Date / Time No Known Drug Allergies Allergy Unknown Verified 04/19/17 02:56 Home Medications Medication Instructions Recorded Confirmed Type No Known Home Medications 12/19/17 12/19/17 History Exam Vital signs: Vital Signs 12/19/17 08:21 12/19/17 08:27 12/19/17 09:02 Temperature 97.9 F Pulse Rate 64 56 L Respiratory Rate 16 Blood Pressure 126/91 H Pulse Oximetry 98 99 100 12/19/17 12:27 12/19/17 14:31 Temperature Pulse Rate 88 Respiratory Rate 16 Blood Pressure 142/86 H Pulse Oximetry 97 Intake & Output 09/03/18 09/04/18 09/04/18 18:59 06:59 18:59 Weight 63.503 kg - Constitutional no acute distress, average body habitus, cooperative - Routine HEENT Exam Head: Present: normocephalic (With abrasion noted to L cheek) Eye: Present: EOMI, PERRL, normal accommodation, conjunctivae pink. Absent: conjunctival icterus, scleral injection, periorbital swelling, nystagmus ENT: Present: mucous membranes moist, oropharynx clear (Dentention notable for missing 4 upper anterior-most teeth) - Routine Neck Exam Present: supple, full ROM. Absent: carotid bruit, lymphadenopathy - Routine Chest/Breast/Axilla Exam Chest wall: Absent: tenderness - Routine Respiratory Exam Present: CTA bilaterally. Absent: rhonchi, stridor, wheezes, crackles Comments: poor air movement - Routine Cardiovascular Exam Present: RRR, S1, S2, bradycardia. Absent: murmur, gallop, rubs - Routine Abdominal Exam Present: soft, normoactive bowel sounds. Absent: tenderness, distended - Routine Extremities Exam Present: pulses intact, normal capillary refill. Absent: cyanosis, clubbing, edema, calf tenderness, Wally's sign - Routine Skin Exam Absent: cyanosis, erythema - Routine Neurological Exam Present: alert, oriented X3, CN II-XII intact, normal reflexes, moving all extremities, vision grossly intact, hearing grossly intact, normal speech. Absent: sensory deficit, motor deficit, plantar reflex, clonus, nystagmus, facial asymmetry, tremors, asterixis - Routine Psychiatric Exam Present: normal affect, normal thought process. Absent: suicidal ideation, homicidal ideation, auditory hallucinations, visual hallucinations Results - Labs Result diagrams: 12/19/17 10:15 12/19/17 10:15 Abnormal lab results 12/19/17 12/19/17 12/19/17 Range/Units 10:15 10:15 10:15 [place] % (Auto) 9.0 H (0.0-8.0) % APTT 19.1 L (24.3-30.1) sec Troponin I Less than 0.02 L (0.02-0.05) ng/mL Ur Leukocyte Esterase (Negative) Urine WBC (0-5) /hpf Urine Mucus (Occasional) /lpf Urine Cocaine Screen (Neg) 12/19/17 12/19/17 Range/Units 11:26 11:26 [place] % (Auto) (0.0-8.0) % APTT (24.3-30.1) sec Troponin I (0.02-0.05) ng/mL Ur Leukocyte Esterase Trace H (Negative) Urine WBC 10 H (0-5) /hpf Urine Mucus Few H (Occasional) /lpf Urine Cocaine Screen Pos H (Neg) Short CBC 12/19/17 Range/Units 10:15 WBC 5.7 (4.0-11.0) th/mm3 Hgb 14.3 (13.0-17.0) gm/dL Hct 43.0 (39.0-51.0) % Plt Count 355 (150-450) th/mm3 BMP 12/19/17 10:15 Sodium 142 Potassium 4.3 Chloride 106 Carbon Dioxide 25.9 BUN 15 Creatinine 1.07 Calcium 8.6 Cardiac Enzymes 12/19/17 Range/Units 10:15 Troponin I Less than 0.02 L (0.02-0.05) ng/mL Liver Function 12/19/17 Range/Units 10:15 Total Bilirubin 0.2 (0.2-1.0) mg/dL AST 25 (15-37) U/L ALT 34 (12-78) U/L Alkaline Phosphatase 70 (45-117) U/L Albumin 3.6 (3.4-5.0) g/dL Urine 12/19/17 Range/Units 11:26 Urine Color Yellow (Yellw/Straw) Urine Clarity Clear (Clear) Urine pH 5.0 (5.0-8.5) Ur Specific [place] 1.017 (1.002-1.035) Urine Protein Negative (Neg-Trace) mg/dL Urine Glucose (UA) Negative (Negative) mg/dL - Imaging Impressions Head CT 12/19/17 09:03 CONCLUSION: 1. No acute intracranial abnormality . Caprini VTE Risk Assessment Caprini VTE Risk Assessment: No/Low Risk (score <= 1) Caprini Risk Assessment Model: Point Value = 1 Point Value = 2 Point Value = 3 Point Value = 5 Age 41-60 Minor surgery BMI > 25 kg/m2 Swollen legs Varicose veins or History of unexplained or recurrent spontaneous Oral contraceptives or hormone replacement Sepsis (< 1 month) Serious lung disease, including pneumonia (< 1 month) Abnormal pulmonary function Acute myocardial infarction Congestive heart failure (< 1 month) History of inflammatory bowel disease Medical patient at bed rest Age 61-74 Arthroscopic surgery Major open surgery (> 45 min) Laparoscopic surgery (> 45 min) Malignancy Confined to bed (> 72 hours) Immobilizing plaster cast Central venous access Age >= 75 History of VTE Family history of VTE Factor V Leiden Prothrombin [id number] Lupus anticoagulant Anticardiolipin antibodies Elevated serum homocysteine Heparin-induced thrombocytopenia Other congenital or acquired thrombophilia Stroke (< 1 month) Elective arthroplasty Hip, pelvis, or leg fracture Acute spinal cord injury (< 1 month) Prophylaxis Regimen: Total Risk Factor Score Risk Level Prophylaxis Regimen 0-1 Low Early ambulation 2 Moderate Order ONE of the following: *Sequential Compression Device (SCD) *Heparin 5000 units SQ BID 3-4 Higher Order ONE of the following medications: *Heparin 5000 units SQ TID *Enoxaparin/Lovenox 40 mg SQ daily (WT < 150 kg, CrCl > 30 mL/min) *Enoxaparin/Lovenox 30 mg SQ daily (WT < 150 kg, CrCl > 10-29 mL/min) *Enoxaparin/Lovenox 30 mg SQ BID (WT < 150 kg, CrCl > 30 mL/min) AND/OR *Sequential Compression Device (SCD) 5 or more Highest Order ONE of the following medications: *Heparin 5000 units SQ TID (Preferred with Epidurals) *Enoxaparin/Lovenox 40 mg SQ daily (WT < 150 kg, CrCl > 30 mL/min) *Enoxaparin/Lovenox 30 mg SQ daily (WT < 150 kg, CrCl > 10-29 mL/min) *Enoxaparin/Lovenox 30 mg SQ BID (WT < 150 kg, CrCl > 30 mL/min) AND *Sequential Compression Device (SCD) Assessment and Plan - Assessment (1) Syncope Code(s): R55 - Syncope and collapse Status: Acute Plan: This is a 42 y/o male who presents following a syncopal episode this morning while at work after standing from a seated position. He reported no preceding symptoms leading up to episode nor a significant past medical history. He reports a similar episode 10 years ago without preceding symptoms, for which he was never evaluated. He does not see a physician regularly and takes no medications. His EKG in the ED revealed sinus bradycardia with a rate of [address] depression or elevation. His head CT was negative and labwork has been unremarkable thus far. His physical exam revealed no focal neurologic deficits or cardiovascular abnormalities. Given the proximity of the episode to rising from a seated position coupled with his poor fluid intake and sweating from sitting outside, this is likely an episode of orthostasis or vasovagal syncope. His bradycardia is likely physiologic. Carotid U/S will be performed to r/o stenosis and troponin's will be trended given this episode of chest pressure last to r/o ischemia/ damage. He will remain in obs overnight on telemetry, with q4 neuro checks and Lovenox 30mg for DVT prophylaxis.
[2017-12-19] MEDS ORDERED: Acetaminophen 325 MG Tablet PO PRN (14:59)
[2017-12-19] MEDS ORDERED: Bisacodyl 10 MG Supp RECTAL PRN (14:59)
[2017-12-19] MEDS: Sod Chloride 0.9% Inj 1,000 ML IV.CONT SCH (15:00)
--- NOTE | 2017-12-19 15:43 | US ---
EXAM DATE: 12/19/2017 3:33 PM EDT AGE/SEX: 42 years / Male INDICATIONS: Syncope. CLINICAL DATA: This is the patient's initial encounter. Patient reports that signs and symptoms have been present for 1 day and indicates a pain score of 0/10. MEDICAL/SURGICAL HISTORY: . Asthma. Left inguinal hernia. None. COMPARISON: No prior exams available for comparison. VELOCITY PARAMETERS: ICA/CCA Ratio: Right 0.8 , Left 0.8 ICA: Right 78.9 cm/sec, Left 85.5 cm/sec CCA: Right 105 cm/sec, Left 110 cm/sec ECA: Right 124 cm/sec, Left 87.0 cm/sec Vertebral: Right 47.9 cm/sec antegrade, Left 46.1 cm/sec antegrade FINDINGS: Right Carotid: No significant plaque is visualized.The waveforms are within normal limits. Left Carotid: No significant plaque is visualized. The waveforms are within normal limits. Other: None. CONCLUSION: No hemodynamically significant stenosis in either carotid artery. Electronically signed by: Mauricio Eid MD 12/19/2017 3:41 PM EDT
[2017-12-19] MEDS ORDERED: Enoxaparin Inj 30 MG/0.3 ML Syringe SQ SCH (16:00)
[2017-12-19] MEDS ORDERED: Acetaminophen 325 MG Tablet PO ONE (18:04)
[2017-12-19 21:13] VITALS: RESP 16
[2017-12-19 22:47] LABS: Free T4 (Free Thyroxine) 0.73 ng/dL (0.76-1.46)
[2017-12-20] MEDS: Sod Chloride 0.9% Inj 1,000 ML IV.CONT SCH ×2 (01:13→12:56)
[2017-12-20 09:14] LABS: Baso % (Auto) 1.1 % (0.0-2.0); Eos # (Auto) 0.2 th/mm3 (0.0-0.4); Eos % (Auto) 5.6 % (0.0-4.0); Hematocrit 40.7 % (39.0-51.0); Hemoglobin 13.5 gm/dL (13.0-17.0); Lymph # (Auto) 1.1 th/mm3 (1.0-4.8); Lymph % (Auto) 24.1 % (9.0-44.0); Mean Corpuscular HGB Conc 33.1 % (32.0-36.0); Mean Corpuscular Hemoglobin 28.5 pg (27.0-34.0); Mean Corpuscular Volume 86.2 fL (80.0-100.0); Mean Platelet Volume 7.7 fL (7.0-11.0); Mono # (Auto) 0.6 th/mm3 (0.0-0.9); Mono % (Auto) 13.4 % (0.0-8.0); Neut # (Auto) 2.4 th/mm3 (1.8-7.7); Neut % (Auto) 55.8 % (16.0-70.0); Platelet Count 327 th/mm3 (150-450); Red Blood Count 4.72 mil/mm3 (4.50-5.90); Red Cell Distribution Width 14.4 % (11.6-17.2); White Blood Count 4.4 th/mm3 (4.0-11.0)
[2017-12-20 09:36] LABS: Albumin 3.3 g/dL (3.4-5.0); Anion Gap 5 meq/L (5-15); Aspartate Aminotransferase 21 U/L (15-37); Blood Urea Nitrogen 10 mg/dL (7-18); Calcium 8.5 mg/dL (8.5-10.1); Carbon Dioxide 29.8 meq/L (21.0-32.0); Chloride 107 meq/L (98-107); Glomerular Filtration Rate Greater Than 89 mL/min (>89); Glucose,Random 94 mg/dL (74-106); Potassium 4.4 meq/L (3.5-5.1); Sodium 142 meq/L (136-145)
[2017-12-20 09:37] LABS: Alanine Aminotransferase 29 U/L (12-78)
[2017-12-20 09:39] LABS: Alkaline Phosphatase 66 U/L (45-117); Total Protein 6.3 g/dL (6.4-8.2)
--- NOTE | 2017-12-20 09:51 | ECG ---
Date Performed: 12/19/2017 Time Performed: 22:36:34 PTAGE: 42 years EKG: SINUS BRADYCARDIA NONSPECIFIC T-WAVE ABNORMALITY BORDERLINE ECG PREVIOUS TRACING : 12/19/2017 18.47 DOCTOR: Jairon Parker Interpretating Date/Time 12/20/2017 09:49:31
--- NOTE | 2017-12-20 10:48 | P.PNFP ---
Subjective Interval history: Ngoc Stephens is a 42yo gentleman with h/o drug use (marijuana and cocaine) admitted after a syncopal episode yesterday, which occurred after standing from a seated position while outside. He fell and sustained an abrasion on his left cheek. While in the ER, he was noticed to have bradycardia into the upper 40s, and was subsequently admitted under observation. This morning, pt reports he is feeling better. He denies any dizziness, lightheadedness, headache, nausea, vision changes. He has ambulated in his room without difficulty. ROS: + chronic back pain. As above. All other systems reviewed are negative. PMH/PSxH/SocHx/FamHx: Per resident H&P. Significant for: tobacco abuse, marijuana and cocaine use (last use ~2 days ago). 1-2 beers daily. H/o hernia repair. Denies any significant family history. He works outside. This note is written in conjunction with medical student H&P dated 12/19/2017. Results - Labs Result diagrams: 12/20/17 08:21 12/20/17 08:21 Abnormal lab results 12/19/17 12/19/17 12/19/17 Range/Units 10:15 10:15 11:26 [place] % (Auto) (0.0-8.0) % Eos % (Auto) (0.0-4.0) % APTT 19.1 L (24.3-30.1) sec Troponin I Less than 0.02 L (0.02-0.05) ng/mL Total Protein (6.4-8.2) g/dL Albumin (3.4-5.0) g/dL Free T4 (0.76-1.46) ng/dL Ur Leukocyte Esterase (Negative) Urine WBC (0-5) /hpf Urine Mucus (Occasional) /lpf Urine Cocaine Screen Pos H (Neg) 12/19/17 12/19/17 12/19/17 Range/Units 11:26 19:21 20:48 [place] % (Auto) (0.0-8.0) % Eos % (Auto) (0.0-4.0) % APTT (24.3-30.1) sec Troponin I Less than 0.02 L Less than 0.02 L (0.02-0.05) ng/mL Total Protein (6.4-8.2) g/dL Albumin (3.4-5.0) g/dL Free T4 (0.76-1.46) ng/dL Ur Leukocyte Esterase Trace H (Negative) Urine WBC 10 H (0-5) /hpf Urine Mucus Few H (Occasional) /lpf Urine Cocaine Screen (Neg) 12/19/17 12/20/17 12/20/17 Range/Units 20:48 08:21 08:21 [place] % (Auto) 13.4 H (0.0-8.0) % Eos % (Auto) 5.6 H (0.0-4.0) % APTT (24.3-30.1) sec Troponin I (0.02-0.05) ng/mL Total Protein 6.3 L D (6.4-8.2) g/dL Albumin 3.3 L (3.4-5.0) g/dL Free T4 0.73 L (0.76-1.46) ng/dL Ur Leukocyte Esterase (Negative) Urine WBC (0-5) /hpf Urine Mucus (Occasional) /lpf Urine Cocaine Screen (Neg) Short CBC 12/20/17 Range/Units 08:21 WBC 4.4 (4.0-11.0) th/mm3 Hgb 13.5 (13.0-17.0) gm/dL Hct 40.7 (39.0-51.0) % Plt Count 327 (150-450) th/mm3 BMP 12/19/17 12/20/17 10:15 08:21 Sodium 142 142 Potassium 4.3 4.4 Chloride 106 107 Carbon Dioxide 25.9 29.8 BUN 15 10 Creatinine 1.07 1.01 Calcium 8.6 8.5 Cardiac Enzymes 12/19/17 12/19/17 12/19/17 Range/Units 10:15 19:21 20:48 Troponin I Less than 0.02 L Less than 0.02 L Less than 0.02 L (0.02-0.05) ng/mL Liver Function 12/19/17 12/20/17 Range/Units 10:15 08:21 Total Bilirubin 0.2 0.2 (0.2-1.0) mg/dL AST 25 21 (15-37) U/L ALT 34 29 (12-78) U/L Alkaline Phosphatase 70 66 (45-117) U/L Albumin 3.6 3.3 L (3.4-5.0) g/dL Urine 12/19/17 Range/Units 11:26 Urine Color Yellow (Yellw/Straw) Urine Clarity Clear (Clear) Urine pH 5.0 (5.0-8.5) Ur Specific [place] 1.017 (1.002-1.035) Urine Protein Negative (Neg-Trace) mg/dL Urine Glucose (UA) Negative (Negative) mg/dL - Imaging Impressions Carotid Doppler Study 12/19/17 00:00 CONCLUSION: No hemodynamically significant stenosis in either carotid artery. Head CT 12/19/17 09:03 CONCLUSION: 1. No acute intracranial abnormality . Physical Exam Vital signs: Vital Signs 12/19/17 12:27 12/19/17 14:31 12/19/17 15:04 Temperature Pulse Rate 88 62 Respiratory Rate 16 15 Blood Pressure 142/86 H 132/82 Pulse Oximetry 97 12/19/17 16:00 12/19/17 17:00 12/19/17 20:00 Temperature 98.6 F 97.4 F L Pulse Rate 58 L 58 L 77 Respiratory Rate 18 16 Blood Pressure 128/83 146/86 H Pulse Oximetry 100 99 12/20/17 00:00 12/20/17 04:00 12/20/17 06:20 Temperature 97.6 F 98.0 F Pulse Rate 67 60 Respiratory Rate 16 16 Blood Pressure 139/90 123/84 Pulse Oximetry 94 L 97 96 12/20/17 08:00 12/20/17 10:15 Temperature 97.2 F L Pulse Rate 51 L Respiratory Rate 16 Blood Pressure 138/101 H Pulse Oximetry 98 97 Intake & Output 12/19/17 12/20/17 12/20/17 18:59 06:59 18:59 Intake Total 340 / 340 2098 / 2098 Output Total 1180 / 1180 900 / 900 Balance -840 / -840 1198 / 1198 Weight 66.9 kg 66.8 kg Intake: IV 100 / 100 1498 / 1498 NS Inj 1,000 ML @ 120 mls/hr IV 1498 / 1498 .CONT .[id number] [facility] Rx#:[id number] Rocephin Inj 1,000 MG In NS Inj 100 / 100 100 ML @ 200 mls/hr IV.SIG ONCE ONE Rx#:[id number] Oral 600 / 600 Other 240 / 240 Output: Urine 1180 / 1180 900 / 900 Other: Weight On Admission 66.9 kg Narrative: Per medical student H&P. In addition: GENERAL: in NAD, no resp distress, nontoxic. Lying comfortably in bed. Changes from supine to sit without difficulty. HEENT: Left cheek abrasion covered by bandaid - clean, dry, and intact. EOMI, PERRL, OP clear. MMM. No nasal drainage. NECK: Supple, no meningeal signs. No carotid bruits. CV: RRR, S1 S2. No murmurs. CHEST/PULM: CTAB, no crackles, no wheezes. ABD/GI: +BS, soft, nontender, nondistended EXT: 2+ DP pulses. No calf tenderness. No edema. NEURO: Awake, alert. Grossly nonfocal. Cranial nerves, sensation to light touch , muscle strength, and cerebellum intact. SKIN: Abrasion as above. No rashes, no jaundice. PSYCH: Mood and affect are appropriate. Speech fluent. Does not appear to respond to internal stimuli. Telemetry reviewed; no significant events noted. Assessment and Plan - Assessment (1) Syncope Code(s): R55 - Syncope and collapse Status: Resolved Plan: Resolved. Likely dehydration vs orthostatic vs drug-induced. Work up: Orthostatic vitals: WNL CT head: WNL Carotid US: WNL Urine drug screen: + cocaine EKG: Sinus bradycardia Serial troponin: WNL Echocardiogram: pending (2) Cocaine abuse Code(s): F14.10 - Cocaine abuse, uncomplicated Status: Chronic Plan: Counselled to quit. Discussed risks of continued use. (3) Marijuana abuse Code(s): F12.10 - Cannabis abuse, uncomplicated Status: Chronic Plan: Counselled to quit. Discussed risks of continued use. (4) Tobacco abuse Code(s): Z72.0 - Tobacco use Status: Chronic Plan: Counselled to quit. Discussed risks of continued use. (5) Abnormal laboratory test Code(s): R89.9 - Unspecified abnormal finding in specimens from other organs, systems and tissues Status: Acute Plan: Asymptomatic. TSH WNL. Free T4 slightly low. Likely subclinical. Pt would benefit from repeat testing in 4-6 weeks. Encouraged patient to seek PCP to establish care. Further workup as an outpatient. - Assessment and Plan Discharge Planning: Anticipate discharge today, once echo completed. - Attending Attestation Patient seen, examined, and discussed with resident team. (1) Syncope Qualifiers: Syncope type: vasovagal syncope Qualified Code(s): R55 - Syncope and collapse
--- NOTE | 2017-12-20 13:13 | ECG ---
Date Performed: 12/19/2017 Time Performed: 18:47:53 PTAGE: 42 years EKG: SINUS BRADYCARDIA MODERATE T-WAVE ABNORMALITY, CONSIDER ANTERIOR ISCHEMIA ABNORMAL ECG PREVIOUS TRACING : 12/19/2017 08.25 DOCTOR: Jairon Parker Interpretating Date/Time 12/20/2017 13:07:52
--- NOTE | 2017-12-20 13:29 | ECG ---
Date Performed: 12/19/2017 Time Performed: 08:25:00 PTAGE: 42 years EKG: SINUS BRADYCARDIA NONSPECIFIC T-WAVE ABNORMALITY BORDERLINE ECG PREVIOUS TRACING : 05/09/2017 23.52 DOCTOR: Jairon Parker Interpretating Date/Time 12/20/2017 13:27:04
[2017-12-20 14:27] VITALS: BP 150/104; PULSE 78; TEMP 97.3; O2SAT 100
--- NOTE | 2017-12-21 15:16 | ECHRPT ---
Indication: CONCLUSIONS Normal left ventricular size. Wall thickness is normal. The left ventricular systolic function is low normal with an estimated ejection fraction in the rang e of 50- 55%. Mitral annular calcification is present. Trace aortic valve regurgitation. There is trace tricuspid valve regurgitation. The estimated pulmonary arterial pressure is 34 mmHg. BP: / HR: Rhythm: MEASUREMENTS (Male / Female) Normal Values Technical Quality: 2D ECHO LV Diastolic Diameter PLAX 5.4 cm 4.2 - 5.9 / 3.9 - 5.3 cm LV Systolic Diameter PLAX 3.9 cm IVS Diastolic Thickness 0.9 cm 0.6 - 1.0 / 0.6 - 0.9 cm LVPW Diastolic Thickness 0.6 cm 0.6 - 1.0 / 0.6 - 0.9 cm LV Relative Wall Thickness 0.3 RV Internal Dim ED PLAX 2.3 cm LA Systolic Diameter LX 2.9 cm 3.0 - 4.0 / 2.7 - 3.8 cm M-MODE AV Cusp Separation MM 1.9 cm DOPPLER Mitral E Point Velocity 63.2 cm/s Mitral A Point Velocity 59.2 cm/s Mitral E to A Ratio 1.1 TR Peak Velocity 270.0 cm/s TR Peak Gradient 29.2 mmHg FINDINGS LEFT VENTRICLE Normal left ventricular size. Wall thickness is normal. The left ventricular systolic function is low normal with an estimated ejection fraction in the rang e of 50- 55%. RIGHT VENTRICLE Normal right ventricular size and systolic function. LEFT ATRIUM The left atrial size is normal. RIGHT ATRIUM The right atrial size is normal. ATRIAL SEPTUM Normal atrial septal thickness without atrial level shunting by limited color doppler interrogation. AORTA The aortic root and proximal ascending aorta are normal in size on limited imaging. MITRAL VALVE Mitral annular calcification is present. AORTIC VALVE Trace aortic valve regurgitation. TRICUSPID VALVE There is trace tricuspid valve regurgitation. The estimated pulmonary arterial pressure is 34 mmHg. PULMONARY VALVE The pulmonary valve is not well visualized. VESSELS The inferior vena cava is normal in size. PERICARDIUM No pericardial effusion. Edu Anderson MD, FACC, [facility] [place] Edited by: assistant administrator assistant administrator (Electronically Signed) Final Date:20 December 2017 14:42 Amended: 21 December 2017 15:15
== END 2017-12-20 15:43 | disposition home or self-care (01) ==
LOC: NEDA 08:10 → NEPE 08:10 → NEDA 15:43 → N04 15:45
PROVIDERS: ADMIT Family Medicine; ATTEND Family Medicine